=== PATIENT | male | born 1985 | race Caucasian/White ===

== ENCOUNTER 2021-10-08 00:49 | Emergency (ER) | payer MEDICAID ==
[~2021-10-08] VITALS: Ht 81.3 cm; Wt 77.3 kg
[~2021-10-08 00:49] MED LIST: CYCL-1 PO; NO HOME MEDS
[2021-10-08 00:59] VITALS: BP 117/88
[2021-10-08] MEDS ORDERED: ACET-1025 PO (07:02)
[2021-10-08] MEDS ORDERED: IBUP-1984 PO (07:02)
[2021-10-08] MEDS ORDERED: acetaminophen 325mg tablet PO ONE (07:05)
[2021-10-08] MEDS ORDERED: ibuprofen tablet 400 MG TABLET PO ONE (07:05)
== END 2021-10-08 07:11 | disposition home or self-care (01) ==
LOC: ER 00:49
DX: M54.50 Low back pain, unspecified (principal); G89.29 Other chronic pain; F19.90 Other psychoactive substance use, unspecified, uncomplicated; Z72.89 Other problems related to lifestyle; Z56.0 Unemployment, unspecified; Z79.899 Other long term (current) drug therapy
CPT/HCPCS: 99282

== ENCOUNTER 2022-02-21 03:45 | Emergency (ER) | payer MEDICAID ==
[~2022-02-21] VITALS: Ht 172.7 cm; Wt 70.0 kg
[2022-02-21 04:09] VITALS: BP 136/90
[2022-02-21] MEDS ORDERED: ketorolac trometh inj. 60 MG/2 ML VIAL IM ONE (04:10)
--- NOTE | 2022-02-21 04:10 | NUR ---
pt presents to ED with ciomplaints of mid back pain not brought on by anything particular. pt denies burning upon urination [id number]. on a 0- 10 pain level 7 pain sclae. pPT REPORTS FALL EARLIER ON HIS LONG BOARD. PT REPORTS PAIN CHRONIC IN NATURE. NO ACUTE DFISTRESS.
[2022-02-21] MEDS ORDERED: CLOT15CR35 TOP (04:16)
== END 2022-02-21 04:35 | disposition home or self-care (01) ==
LOC: ER 03:45
DX: B35.3 Tinea pedis (principal); G89.29 Other chronic pain; M54.9 Dorsalgia, unspecified; R21 Rash and other nonspecific skin eruption; Z72.89 Other problems related to lifestyle; Z56.0 Unemployment, unspecified; Z79.899 Other long term (current) drug therapy
CPT/HCPCS: 96372; 99283; J1885

== ENCOUNTER 2022-03-08 08:36 | Emergency (ER) | payer MEDICAID ==
[~2022-03-08] VITALS: Ht 172.7 cm; Wt 72.7 kg
[~2022-03-08 08:36] MED LIST changes: +CLOT15CR35 TOP
[2022-03-08 09:21] VITALS: BP 124/77
[2022-03-08] MEDS ORDERED: ACET-1008 PO (12:16)
[2022-03-08] MEDS ORDERED: BENZ-38 PO (12:16)
[2022-03-08] MEDS ORDERED: PSEU-259 PO (12:16)
[2022-03-08] MEDS ORDERED: IBUP-1984 PO (12:16)
== END 2022-03-08 13:01 | disposition home or self-care (01) ==
LOC: ER 08:37
DX: B34.9 Viral infection, unspecified (principal); R11.0 Nausea; R09.81 Nasal congestion; R05.9 Cough, unspecified; G89.29 Other chronic pain; F19.90 Other psychoactive substance use, unspecified, uncomplicated; Z79.2 Long term (current) use of antibiotics; Z72.89 Other problems related to lifestyle; Z56.0 Unemployment, unspecified; Z79.899 Other long term (current) drug therapy
CPT/HCPCS: 99283

== ENCOUNTER 2022-04-13 04:25 | Emergency (ER) | payer MEDICAID ==
[~2022-04-13 04:25] MED LIST changes: +PSEU-259 PO
== END 2022-04-13 05:15 | disposition left against medical advice (07) ==
LOC: ER 04:26
DX: K59.00 Constipation, unspecified (principal); Z53.21 Procedure and treatment not carried out due to patient leaving prior to being seen by health care provider

== ENCOUNTER 2023-05-04 13:46 | Emergency (ER) | payer MEDICAID ==
[~2023-05-04] VITALS: Ht 170.2 cm; Wt 68.2 kg
--- NOTE | 2023-05-04 13:54 | NUR ---
USING RESTROOM AT THIS TIME.
[2023-05-04 14:01] VITALS: BP 132/70
[2023-05-04] MEDS ORDERED: TRIA15CR61 TOP (15:17)
== END 2023-05-04 15:25 | disposition home or self-care (01) ==
LOC: ER 13:46
DX: L98.9 Disorder of the skin and subcutaneous tissue, unspecified (principal)
CPT/HCPCS: 99283